=== PATIENT | male | born 1995 ===

== ENCOUNTER 2019-11-27 15:07 | Emergency (ER) | payer OTHER ==
[~2019-11-27] VITALS: Ht 182.9 cm; Wt 118.4 kg
[2019-11-27 15:14] VITALS: BP 130/81
--- NOTE | 2019-11-27 15:28 | NUR ---
PT AMBULATED TO ER BED 04
[2019-11-27] MEDS ORDERED: HYDROcodone/APAP 5/325 MG 1 TAB TAB PO ONE (15:45)
--- NOTE | 2019-11-27 16:00 | NUR ---
PT TO [facility] VIA WHEELCHAIR.
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
--- NOTE | 2019-11-27 16:17 | NUR ---
PT BACK FROM [facility].
[2019-11-27] MEDS ORDERED: NACL 0.9% 1,000 ML IV SCH (16:22)
--- NOTE | 2019-11-27 16:24 | NUR ---
LAUREN DELATORRE AT BEDSIDE REEVALUATING PT.
--- NOTE | 2019-11-27 17:01 | NUR ---
LABS AT BEDSIDE.
--- NOTE | 2019-11-27 17:04 | NUR ---
LAUREN DELATORRE AT BEDSIDE TALKING TO PT AND PT BROTHER ON THE PHONE.
[2019-11-27 17:07] LABS: BASOPHILS # (AUTO) 0.1 K/uL (0.00-0.22); BASOPHILS % (AUTO) 0.8 % (0.0-2.0); EOSINOPHILS % (AUTO) 0.1 % (0.0-4.0); HEMATOCRIT 47.7 % (36-52); HEMOGLOBIN 15.8 g/dL (12.0-18.0); LYMPHOCYTES # (AUTO) 1.3 K/uL (2.0-11.5); LYMPHOCYTES % (AUTO) 8.6 % (20.5-51.1); MEAN CORPUSCULAR HEMOGLOBIN 30 pg (27-31); MEAN CORPUSCULAR HGB CONC 33 g/dL (33-37); MEAN CORPUSCULAR VOLUME 90.6 fL (80-94); MONOCYTES # (AUTO) 1.2 K/uL (0.8-1.0); MONOCYTES % (AUTO) 7.7 % (1.7-9.3); NEUTROPHILS # (AUTO) 12.6 K/uL (1.8-7.7); NEUTROPHILS % (AUTO) 82.8 % (42.2-75.2); PLATELET COUNT (AUTO) 209 K/uL (140-450); RED BLOOD CELL COUNT(AUTO) 5.27 MIL/uL (4.20-6.10); RED CELL DISTRIBUTION WIDTH 14.8 % (11.6-13.7); WHITE BLOOD COUNT (AUTO) 15.2 K/uL (4.8-10.8)
--- NOTE | 2019-11-27 17:09 | NUR ---
EMT MIGUEL COORDINATING TRANSFER TO [facility] VIA [facility]. ETA OF TRANSPORT 60 MINUTES.
[2019-11-27] MEDS ORDERED: MIDAZOLAM 2 MG/2 ML VIAL IVP ONE ×2 (17:10→17:25)
[2019-11-27] MEDS ORDERED: MIDAZOLAM 2 MG/2 ML VIAL ONE (17:21)
--- NOTE | 2019-11-27 17:23 | NUR ---
NUMBER FOR REPORT [phone]
[2019-11-27 17:27] LABS: PROTHROMBIN TIME 10.5 secs (10.8-13.4)
[2019-11-27 17:54] LABS: ALBUMIN 3.9 g/dL (3.4-5.0); CARBON DIOXIDE 29.4 mmol/L (21-32); CREATININE 1.2 mg/dL (0.6-1.3); TOTAL BILIRUBIN 0.6 mg/dL (0.0-1.0)
[2019-11-27 17:59] LABS: ANION GAP 14.5 (8-16); POTASSIUM 3.9 mmol/L (3.5-5.1)
[2019-11-27 18:16] VITALS: BP 120/82
--- NOTE | 2019-11-27 18:19 | NUR ---
Patient to be transferred to [facility]. Is being transferred due to higher level of care. Receiving facility has accepting physician and available space. ER physician has signed transfer form. Patient or responsible constitution party has agreed to transfer and signed form. Patient belongings inventoried and will be sent with patient. Copy of nursing notes, lab reports, EKG, Physicians Orders and X-rays to be sent with patient. Report called to ems gucci at receiving facility. [facility] has been called for transfer.
--- NOTE | 2019-11-29 13:54 | NUR ---
LATE ENTRY- NORMAL SALINE 0.9% DISCONTINUED AT 181.
== END 2019-11-27 18:19 | disposition short-term general hospital (02) ==
LOC: MED 15:07
DX: S02.91XA Unspecified fracture of skull, initial encounter for closed fracture (principal); S13.4XXA Sprain of ligaments of cervical spine, initial encounter; F12.90 Cannabis use, unspecified, uncomplicated; Z88.0 Allergy status to penicillin; V89.2XXA Person injured in unspecified motor-vehicle accident, traffic, initial encounter; Y93.89 Activity, other specified; Y92.89 Other specified places as the place of occurrence of the external cause; Y99.8 Other external cause status
CPT/HCPCS: 36415; 70450; 72125; 80053; 85025; 85610; 85730; 96374; 99285; J2250; J7030

== ENCOUNTER 2020-01-06 12:34 | Emergency (ER) | payer MEDICAID, OTHER ==
[~2020-01-06] VITALS: Ht 185.4 cm; Wt 114.8 kg
[2020-01-06 12:44] VITALS: BP 142/90
[2020-01-06 13:35] LABS: EOSINOPHILS # (AUTO) 0.1 K/uL (0-0.4); EOSINOPHILS % (AUTO) 1.1 % (0.0-4.0); HEMATOCRIT 43.2 % (36-52); LYMPHOCYTES % (AUTO) 8.6 % (20.5-51.1); MEAN CORPUSCULAR HEMOGLOBIN 30 pg (27-31); MEAN CORPUSCULAR HGB CONC 33 g/dL (33-37); MEAN CORPUSCULAR VOLUME 91.8 fL (80-94); MONOCYTES # (AUTO) 2.4 K/uL (0.8-1.0); MONOCYTES % (AUTO) 20.4 % (1.7-9.3); NEUTROPHILS # (AUTO) 8.2 K/uL (1.8-7.7); NEUTROPHILS % (AUTO) 69.9 % (42.2-75.2); PLATELET COUNT (AUTO) 167 K/uL (140-450); RED BLOOD CELL COUNT(AUTO) 4.71 MIL/uL (4.20-6.10); RED CELL DISTRIBUTION WIDTH 13.9 % (11.6-13.7); WHITE BLOOD COUNT (AUTO) 11.7 K/uL (4.8-10.8)
[2020-01-06 13:58] LABS: ALBUMIN 3.3 g/dL (3.4-5.0); ANION GAP 10.8 (8-16); ASPARTATE AMINOTRANSFERASE 17 U/L (15-37); CARBON DIOXIDE 28.7 mmol/L (21-32); CHLORIDE 105 mmol/L (98-107); CREATININE 1.2 mg/dL (0.6-1.3); GFR ARICAN-AMERICAN 94 mL/min (>90); GLUCOSE 134 mg/dL (74-106); POTASSIUM 3.5 mmol/L (3.5-5.1); SODIUM SERUM 141 mmol/L (136-145); TOTAL BILIRUBIN 0.3 mg/dL (0.0-1.0); UREA NITROGEN, BLOOD 10 mg/dL (7-18)
[2020-01-06 14:00] LABS: ACETAMINOPHEN < 0.5 ug/ml (10-30); SALICYLATE < 2.8 mg/dL (2.8-20.0)
[2020-01-06 15:19] VITALS: BP 135/85
== END 2020-01-06 15:19 | disposition home or self-care (01) ==
LOC: MED 12:34
DX: T40.2X1A Poisoning by other opioids, accidental (unintentional), initial encounter (principal); F17.210 Nicotine dependence, cigarettes, uncomplicated; H11.30 Conjunctival hemorrhage, unspecified eye; M54.5 Low back pain; R56.9 Unspecified convulsions; R03.0 Elevated blood-pressure reading, without diagnosis of hypertension; Z88.0 Allergy status to penicillin
CPT/HCPCS: 36415; 71045; 80053; 85025; 93005; 99285; G0480; G0482; Q0092